=== PATIENT | female | born 1980 | race American Indian/Alaskan Native ===

== ENCOUNTER 2017-11-26 07:46 | Emergency (ER) | payer OTHER ==
[2017-11-26 07:55] VITALS: BMI 26.6
[2017-11-26] MEDS ORDERED: Sodium Chloride 0.9% 1,000 ML IV STA (08:28)
[2017-11-26] MEDS ORDERED: Famotidine 20mg/50ml Premix IVPB STA (08:28)
[2017-11-26] MEDS ORDERED: Famotidine 20mg/50ml 20 MG/50 ML BAG IVPB ONE (08:32)
--- NOTE | 2017-11-26 08:33 | ED PDOC ---
HPI: General Adult Time Seen by Provider: 11/26/17 08:00 Chief Complaint (Nursing): Abdominal Pain Chief Complaint (Provider): Whole body pain History Per: Patient, EMS History/Exam Limitations: no limitations Onset/Duration Of Symptoms: Hrs (x4) Current Symptoms Are (Timing): Still Present Additional Complaint(s): 37 year old female, with a past medical history of HIV, presented to the ED via EMS complaining of diarrhea and nausea since 05:00 today. Patient reports whole body pain including back pain, leg pain, and abdominal pain. Denies fever and vomiting. PCP: none provided Past Medical History Reviewed: Historical Data, Nursing Documentation, Vital Signs Vital Signs: Last Vital Signs Temp 98 F 11/26/17 16:13 Pulse 71 11/26/17 16:13 Resp 18 11/26/17 16:13 BP 124/69 11/26/17 16:13 Pulse Ox 98 11/26/17 16:13 - Medical History PMH: HIV - Surgical History Surgical History: - Family History Family History: States: Unknown Family Hx - Social History Current smoker - smoking cessation education provided: Yes Alcohol: None Drugs: Denies - Home Medications Home Medications: Ambulatory Orders Medication Instructions Recorded Ciprofloxacin HCl [Cipro] 500 mg PO BID #20 tab 11/26/17 Metronidazole [Flagyl] 500 mg PO TID #30 tablet 11/26/17 - Allergies Allergies/Adverse Reactions: Allergies Allergy/AdvReac Type Severity Reaction Status Date / Time No Known Allergies Allergy Verified 11/26/17 07:56 Review of Systems ROS Statement: Except As Marked, All Systems Reviewed And Found Negative Constitutional: Negative for: Fever Gastrointestinal: Positive for: Nausea, Abdominal Pain, Diarrhea. Negative for : Vomiting Musculoskeletal: Positive for: Back Pain, Leg Pain Physical Exam - Reviewed Nursing Documentation Reviewed: Yes Vital Signs Reviewed: Yes - Physical Exam Appears: Positive for: Non-toxic, No Acute Distress Head Exam: Positive for: ATRAUMATIC, NORMAL INSPECTION, NORMOCEPHALIC Skin: Positive for: Normal Color, Warm, Dry Eye Exam: Positive for: Normal appearance ENT: Positive for: Normal ENT Inspection Neck: Positive for: Normal, Painless ROM Cardiovascular/Chest: Positive for: Regular Rate, Rhythm. Negative for: Murmur Respiratory: Positive for: Normal Breath Sounds. Negative for: Wheezing, Respiratory Distress Gastrointestinal/Abdominal: Positive for: Normal Exam, Soft. Negative for: Tenderness Back: Positive for: Normal Inspection. Negative for: L CVA Tenderness, R CVA Tenderness Extremity: Positive for: Normal ROM Neurologic/Psych: Positive for: Alert, Oriented. Negative for: Motor/Sensory Deficits - Laboratory Results Result Diagrams: 11/26/17 08:40 11/26/17 08:40 - ECG O2 Sat by Pulse Oximetry: 100 (RA) Pulse Ox Interpretation: Normal Medical Decision Making Medical Decision Making: Initial Impression: Diarrhea and nausea rule out electrolyte abnormality, dehydration Initial Plan: CMP CBC Famotidine 20mg IV Sodium chloride 1000mL IV Ondansetron 4mg PO Blood culture Urine culture Urinalysis Pt noted to have leukocytosis, will order CT ap to rule out intraabdominal abscess, appendicitis, diverticulitis. pt comfortable after morphine administration. CT shows novak colitis. see full report. pt tolerated po, and feels improved. pt given po abx and instructed to follow up with doctor/GI specialist. pt agreeable to plan. Scribe Attestation: Documented by Theo Brizuela acting as a scribe for Stephania Ryan MD. Provider Scribe Attestation: All medical record entries made by the Scribe were at my direction and personally dictated by me. I have reviewed the chart and agree that the record accurately reflects my personal performance of the history, physical exam, medical decision making, and the department course for this patient. I have also personally directed, reviewed, and agree with the discharge instructions and disposition. Disposition - Clinical Impression Clinical Impression: Colitis - Patient ED Disposition Is Patient to be Admitted: No Counseled Patient/Family Regarding: Studies Performed, Diagnosis, Need For Followup - Disposition Referrals: [facility] [Outside] Nj Leiva MD [Staff Provider] - Disposition: Routine/Home Disposition Time: 12:00 Condition: IMPROVED Additional Instructions: follow up with your primary doctor in 1-2 days return with any worsening or concerning symptoms Prescriptions: Ciprofloxacin HCl [Cipro] 500 mg PO BID #20 tab Metronidazole [Flagyl] 500 mg PO TID #30 tablet Instructions: Diarrhea in Adolescents and Adults Forms: [facility] (Albanian)
[2017-11-26 09:02] LABS: BASO # 0.1 K/uL (0.0-0.2); BASO % 0.6 % (0.0-2.0); EOS % 0.3 % (0.0-4.0); HEMOGLOBIN 13.1 g/dL (12.0-16.0); LYMPH % 7.8 % (20.0-40.0); MEAN CELL VOLUME 89.8 fl (81.0-99.0); MEAN CORPUSCULAR HEMOGLOBIN 30.4 pg (27.0-31.0); MEAN CORPUSCULAR HGB CONC 33.8 g/dL (33.0-37.0); MEAN PLATELET VOLUME 9.1 fl (7.2-11.7); MONO # 0.4 K/uL (0.0-0.8); MONO % 3.1 % (0.0-10.0); NEUT # 11.6 K/uL (1.8-7.0); NEUT % 88.2 % (50.0-75.0); PLATELET COUNT 274 K/uL (130-400); RBC 4.31 Mil/uL (3.80-5.20); WHITE BLOOD COUNT 13.2 K/uL (4.8-10.8)
[2017-11-26 09:13] LABS: ALB/GLOB RATIO 0.9 (1.0-2.1); ALBUMIN 3.6 g/dL (3.5-5.0); GFR AFRICAN-AMERICAN > 60; GFR NON-AFRICAN AMERICAN > 60
[2017-11-26 09:18] LABS: ALT/SGPT 33 U/L (9-52); AST/SGOT 41 U/L (14-36); BLOOD UREA NITROGEN 9 mg/dl (7-17)
[2017-11-26 09:58] LABS: SQUAMOUS EPITHIAL 4 /hpf (0-5); URINE BILIRUBIN NEGATIVE (NEGATIVE); URINE BLOOD LARGE (NEGATIVE); URINE CLARITY SLIGHTY-CLOUDY (Clear); URINE COLOR YELLOW (YELLOW); URINE GLUCOSE (UA) NEG (Normal); URINE LEUKOCYTE ESTERASE NEG Leu/uL (Negative); URINE PROTEIN NEGATIVE (NEGATIVE); URINE UROBILINOGEN 0.2-1.0 mg/dL (0.2-1.0)
[2017-11-26 10:45] LABS: BASOPHIL 1 % (0-2); LYMPHOCYTE 10 % (20-50); MONOCYTE 4 % (0-10); NEUTROPHIL 78 % (42-75); PLATELET ESTIMATE NORMAL (NORMAL); REACTIVE LYMPHOCYTES 7 % (0-0); TOTAL CELLS COUNTED 100
[2017-11-26] MEDS ORDERED: Iohexol 240 (50 ml) PO ONE (11:09)
[2017-11-26] MEDS ORDERED: Iohexol 240 (50 ml) ONE (11:40)
[2017-11-26] MEDS ORDERED: Sodium Chloride 0.9% 50 ML IV ONE (14:23)
[2017-11-26] MEDS ORDERED: Iohexol 300 100 ML IJ ONE (14:23)
[2017-11-26] MEDS ORDERED: Morphine 4 MG/ML VIAL ONE (14:43)
--- NOTE | 2017-11-26 15:22 | CT ---
PROCEDURE: CT Abdomen and Pelvis with contrast HISTORY: Abdominal pain COMPARISON: None. TECHNIQUE: Contrast dose: 95 cc Omnipaque 300 Radiation dose: Total exam DLP = 458.20 mGy-cm. This CT exam was performed using one or more of the following dose reduction techniques: Automated exposure control, adjustment of the mA and/or kV according to patient size, and/or use of iterative reconstruction technique. FINDINGS: LOWER THORAX: The visualized lungs are clear. LIVER: There is mild hepatomegaly and diffuse fatty infiltration in the liver. No gross lesion or ductal dilatation. GALLBLADDER AND BILE DUCTS: There are no calcified gallstones. PANCREAS: Normal in size with homogeneous enhancement. No gross lesion or ductal dilatation. SPLEEN: Normal in size and appearance. ADRENALS: No discrete nodule. KIDNEYS AND URETERS: Normal in size with homogeneous enhancement. No hydronephrosis. No solid mass. VASCULATURE: No aortic aneurysm. BOWEL: The small bowel loops are normal in caliber. There is moderate diffuse circumferential mural thickening in the colon with mild pericolonic inflammatory changes. No bowel dilatation or obstruction. APPENDIX: Normal appendix. PERITONEUM: Unremarkable. No free fluid. No free air. LYMPH NODES: There is mild reactive enlargement of right lower quadrant mesenteric lymph nodes. BLADDER: Grossly normal in appearance. REPRODUCTIVE: The uterus is normal in size. BONES: No acute fracture. Within normal limits for the patient's age. OTHER FINDINGS: There is a small sliding hiatal hernia. IMPRESSION: 1. Findings are most compatible with nonspecific infectious/ inflammatory novak colitis. No bowel obstruction. 2. Mild hepatomegaly and hepatic steatosis.
[2017-11-26 16:14] VITALS: BP 124/69; PULSE 71; RESP 18; TEMP 98
[2017-11-28 10:32] VITALS: O2SAT 100
== END 2017-11-26 16:13 | disposition home or self-care (01) ==
LOC: H.ER 07:46
DX: K52.9 Noninfective gastroenteritis and colitis, unspecified (principal); F17.200 Nicotine dependence, unspecified, uncomplicated; B20 Human immunodeficiency virus [HIV] disease
CPT/HCPCS: 74177; 80053; 81003; 81025; 85025; 87040; 87086; 96365; 96375; 99283; J2270; J7030; Q9966; Q9967